=== PATIENT | male | born 1950 | race Caucasian/White ===

== ENCOUNTER 2021-07-12 10:55 | Inpatient (IN) | payer MEDICARE, OTHER ==
[2021-07-12] MEDS ORDERED: Sodium Chloride 0.9% 1,000 ML IV ONE (11:06)
[2021-07-12] MEDS ORDERED: Aspirin 81 MG Tab.Chew PO ONE (11:06)
--- NOTE | 2021-07-12 11:09 | PCM.EKG ---
#1 Interpretation EKG Date: 07/12/21 Time: 10:55 Rhythm: NSR Rate (Beats/Min): 89 ST-T: Depressed (diffusely)
--- NOTE | 2021-07-12 11:18 | EDM.PDOC ---
ED HPI GENERAL MEDICAL PROBLEM - General Chief Complaint: Respiratory Problem Stated Complaint: EMS Time Seen by Provider: 07/12/21 10:59 Source of Information: Reports: Patient History Limitations: Reports: No Limitations - History of Present Illness INITIAL COMMENTS - FREE TEXT/NARRATIVE: HISTORY AND PHYSICAL: History of present illness: Patient is a 70-year-old male, with past medical history for hypertension, type 2 diabetes, prior colon cancer in remission, who presents emergency room today with concern of "not feeling well "which has been ongoing for the past 1-08/06 we eks. Patient states that he has been having "chest congestion" including cough, runny/stuffy nose, and sore throat. Patient states that he began feeling unwell and went to [facility] today and they brought him to the emergency room by ambulance as his oxygen was low. Patient states that he has also been having some chest pain and shortness of breath but states that the chest pain is related to coughing and feeling congested in his chest. Patient states that he has been also having fevers since the onset of his symptoms a week and a half ago. Patient also notes that he has had a decreased appetite. Patient is not vaccinated for Covid. Patient denies headache, neck stiff ness, change in vision, syncope, or near syncope. Denies nausea, vomiting, abdominal pain, diarrhea, constipation, or dysuria. Has not noted any blood in urine or stool. Review of systems: As per history of present illness and below otherwise all systems reviewed and negative. Past medical history: As per history of present illness and as reviewed below otherwise noncontributory. Surgical history: As per history of present illness and as reviewed below otherwise noncontributory. Social history: See social history for further information Family history: As per history of present illness and as reviewed below otherwise noncontributory. Physical exam: General: Patient is alert, oriented, and in no acute distress. Patient laying comfortably on exam table, pale appearing. Febrile 101, hypoxic 80% on RA (report via EMS), placed on 2L NC and 93%, otherwise vitally stable and reviewed by me. HEENT: Atraumatic, normocephalic, pupils equal and reactive bilaterally, negative for conjunctival pallor or scleral icterus, mucous membranes severely dry, throat clear, neck supple, nontender, trachea midline. No drooling or trismus noted. No meningeal signs. No hot potato voice noted. Lungs: Dry cough on exam. Clear to auscultation, breath sounds equal bilaterally, chest nontender. Heart: S1S2, holosystolic murmur best heard at the LUSB, otherwise, regular rate and rhythm Abdomen: Soft, nondistended, nontender. Negative for masses or hepatosplenomegaly. Negative for costovertebral tenderness. Pelvis: Stable nontender. Genitourinary: Deferred. Rectal: Deferred. Skin: Intact, warm, dry. No lesions or rashes noted. Extremities: Atraumatic, negative for cords or calf pain. Neurovascular unre markable. Neuro: Awake, alert, oriented. Cranial nerves II through XII unremarkable. Cerebellum unremarkable. Motor and sensory unremarkable throughout. Exam nonfocal. Medical Decision Making: Patient is a 70-year-old male with a history of type 2 diabetes, hypertension, prior colon cancer in remission, who presents emergency room today with concern of cough, fever, generalized body aches, chest pain, shortness of breath, and feeling unwell for the past 1.5 weeks. Upon arrival to the ED, patient is hypoxic 80% on room air according to EMS report, but is on 1.5 L nasal cannula upon arrival to the ED by EMS and is satting 93%. Patient is also febrile on exam 101, and patient's mucous membranes are severely dry on exam. Patient is also noted to have a dry cough. Patient does have a holosystolic murmur best heard at the left upper sternal border, remainder of physical exam unremarkable. No lower extremity edema. IV access obtained immediately upon arrival to the ED, panel monitor placed and continuous pulse oximeter obtained. Given patient's clinical dehydration, will also provide 1 L normal saline bolus at this time while awaiting cardiac evaluation. See Dr. Luke's dictation for specific EKG interpretation. Otherwise, normal sinus rhythm with a rate of 89. Patient does have some diffuse T wave inversions with some ST depression in leads II, and mild ST elevation in aVR by 1 mm. At this time, this is nonspecific. No evidence of STEMI. Will follow troponin. CBC does show mild anemia with red blood cells at 4.4, and hemoglobin of 12.6. Patient was thrombocytopenic with platelets of 107. Otherwise mild derangements of CBC unremarkable. D-dimer is elevated at 1.7 so will obtain angiography of the chest. CMP does show glucose elevation at 204, total bilirubin elevated in isolation at 1.4. Troponin is negative. Otherwise mild derangements of CMP unremarkable. Patient is Covid 19 positive and influenza negative. chest X-ray unremarkable. Angiography of the chest is negative for acute pulmonary embolism. Thickening of the left ventricle myocardium with evidence of poor infarct at the apex. Correlate clinically. Moderate patchy groundglass opacities throughout the lungs bilaterally compatible with Covid pneumonia. Nodularity of the liver surface suggesting cirrhosis. Mild splenomegaly. Reevaluation of patient, he remains vitally stable and has improvement of his symptoms with therapeutics given today in the emergency room. Patient remains on 2 L nasal cannula and satting about 93% and breathing comfortably. Patient does state he has chest pain only with coughing but outside of this, has not had any new onset chest pain or worsening symptoms. Patient states he would not have come to the emergency room today if the clinic had not sent him as he did not have any change in symptoms today. I did call and speak to the hospitalist on-call, Dr. Concepcion, and thoroughly discussed patient's case. Will admit to inpatient on telemetry to Dr. Concepcion Voices understanding and is agreeable to plan of care. Denies any further questions or concerns at this time. Diagnostics: EKG, CBC, CMP, UA, chest x-ray, troponin, D-dimer, COVID-19/influenza Therapeutics: Normal saline, Decadron, remdesivir, Tylenol Impression: COVID-19 pneumonia with acute hypoxia Acute dehydration Plan: Admit to inpatient on telemetry to Dr. Concepcion Definitive disposition and diagnosis as appropriate pending reevaluation and review of above. chest Pain Score (Numeric/FACES): 3 - Related Data Allergies Allergy/AdvReac Type Severity Reaction Status Date / Time No Known Allergies Allergy Verified 07/12/21 11:14 Home Meds: Home Meds Aspirin [Halfprin] 81 mg PO DAILY 07/12/21 [History] Dexamethasone/Tobramycin [Tobradex Ophth Susp] 1 drop EYELF QID 07/12/21 [History] Donepezil [Aricept] 5 mg PO BEDTIME 07/12/21 [History] Erythromycin Base [Erythromycin 0.5% Ophth Oint] 1 applic EYELF BEDTIME 07/12/21 [History] Sertraline [Zoloft] 100 mg PO DAILY 07/12/21 [History] Simvastatin 20 mg PO DAILY 07/12/21 [History] metFORMIN [Glucophage] 500 mg PO DAILY 07/12/21 [History] ED ROS GENERAL - Review of Systems Review Of Systems: Comprehensive ROS is negative, except as noted in HPI. ED EXAM, GENERAL - Physical Exam Exam: See Below (see dictation) Course - Vital Signs Last Recorded V/S: Last Vital Signs Temp 101.1 F H 07/12/21 12:05 Pulse 99 07/12/21 11:09 Resp 20 07/12/21 11:09 BP 155/62 H 07/12/21 11:09 Pulse Ox 88 L 07/12/21 11:09 - Orders/Labs/Meds Orders: Active Orders 24 hr Category Date Time Status Admission Status [Patient Status] [ADT] Stat ADT 07/12/21 14:24 Active Cardiac Monitoring [RC] . DIRECTED Care 07/12/21 11:06 Active BILIRUBIN DIRECT [CHEM] DAILY Lab 07/12/21 14:36 Received BILIRUBIN DIRECT [CHEM] DAILY Lab 07/13/21 12:30 Ordered BILIRUBIN DIRECT [CHEM] DAILY Lab 07/14/21 12:30 Ordered BILIRUBIN DIRECT [CHEM] DAILY Lab 07/15/21 12:30 Ordered BILIRUBIN DIRECT [CHEM] DAILY Lab 07/16/21 12:30 Ordered COMPREHENSIVE METABOLIC PN,CMP [CHEM] DAILY Lab 07/13/21 12:30 Ordered COMPREHENSIVE METABOLIC PN,CMP [CHEM] DAILY Lab 07/14/21 12:30 Ordered COMPREHENSIVE METABOLIC PN,CMP [CHEM] DAILY Lab 07/15/21 12:30 Ordered COMPREHENSIVE METABOLIC PN,CMP [CHEM] DAILY Lab 07/16/21 12:30 Ordered COMPREHENSIVE METABOLIC PN,CMP [CHEM] Routine Lab 07/12/21 14:36 Received CULTURE BLOOD [BC] Stat Lab 07/12/21 11:00 Received CULTURE BLOOD [BC] Stat Lab 07/12/21 11:10 Received TROPONIN I [CHEM] Stat Lab 07/12/21 14:36 Received UA RFX GIO AND CULT IF INDIC [URIN] Stat Lab 07/12/21 11:06 Ordered Blood Culture x2 Reflex Set [OM.PC] Stat Oth 07/12/21 11:06 Ordered Labs: Laboratory Tests 07/12/21 07/12/21 07/12/21 Range/Units 10:59 11:03 11:03 WBC 7.88 (4.0-11.0) K/uL RBC 4.40 L (4.50-5.90) M/uL Hgb 12.6 L (13.0-17.0) g/dL Hct 38.0 (38.0-50.0) % MCV 86.4 (80.0-98.0) fL MCH 28.6 (27.0-32.0) pg MCHC 33.2 (31.0-37.0) g/dL RDW Std Deviation 42.7 (28.0-62.0) fl RDW Coeff of Aaron 13 (11.0-15.0) % Plt Count 107 L (150-400) K/uL MPV 13.10 H (7.40-12.00) fL Neut % (Auto) 78.9 (48.0-80.0) % Lymph % (Auto) 11.4 L (16.0-40.0) % Sandoval % (Auto) 9.1 (0.0-15.0) % Eos % (Auto) 0.5 (0.0-7.0) % Baso % (Auto) 0.1 (0.0-1.5) % Neut # (Auto) 6.2 H (1.4-5.7) K/uL Lymph # (Auto) 0.9 (0.6-2.4) K/uL Sandoval # (Auto) 0.7 (0.0-0.8) K/uL Eos # (Auto) 0.0 (0.0-0.7) K/uL Baso # (Auto) 0.0 (0.0-0.1) K/uL Nucleated RBC % 0.0 /100WBC Nucleated RBCs # 0 K/uL D-Dimer, Quantitative 1.70 H (0.0-0.50) mg/L FEU Sodium (136-148) mmol/L Potassium (3.5-5.1) mmol/L Chloride (98-107) mmol/L Carbon Dioxide (21.0-32.0) mmol/L BUN (7.0-18.0) mg/dL Creatinine (0.8-1.3) mg/dL Est Cr Clr Drug Dosing mL/min Estimated GFR (MDRD) ml/min Glucose (74-106) mg/dL Lactic Acid (0.4-2.0) mmol/L Calcium (8.5-10.1) mg/dL Total Bilirubin (0.2-1.0) mg/dL AST (15-37) IU/L ALT (14-63) IU/L Alkaline Phosphatase (46-116) U/L Troponin I (0.000-0.056) ng/mL Total Protein (6.4-8.2) g/dL Albumin (3.4-5.0) g/dL Globulin (2.6-4.0) g/dL Albumin/Globulin Ratio (0.9-1.6) Lipase (73-393) U/L Influenza Type A RNA NEGATIVE (NEGATIVE) Influenza Type B RNA NEGATIVE (NEGATIVE) SARS-CoV-2 RNA (DEE) POSITIVE H (NEGATIVE) 07/12/21 07/12/21 Range/Units 11:03 11:03 WBC (4.0-11.0) K/uL RBC (4.50-5.90) M/uL Hgb (13.0-17.0) g/dL Hct (38.0-50.0) % MCV (80.0-98.0) fL MCH (27.0-32.0) pg MCHC (31.0-37.0) g/dL RDW Std Deviation (28.0-62.0) fl RDW Coeff of Aaron (11.0-15.0) % Plt Count (150-400) K/uL MPV (7.40-12.00) fL Neut % (Auto) (48.0-80.0) % Lymph % (Auto) (16.0-40.0) % Sandoval % (Auto) (0.0-15.0) % Eos % (Auto) (0.0-7.0) % Baso % (Auto) (0.0-1.5) % Neut # (Auto) (1.4-5.7) K/uL Lymph # (Auto) (0.6-2.4) K/uL Sandoval # (Auto) (0.0-0.8) K/uL Eos # (Auto) (0.0-0.7) K/uL Baso # (Auto) (0.0-0.1) K/uL Nucleated RBC % /100WBC Nucleated RBCs # K/uL D-Dimer, Quantitative (0.0-0.50) mg/L FEU Sodium 138 (136-148) mmol/L Potassium 4.1 (3.5-5.1) mmol/L Chloride 102 (98-107) mmol/L Carbon Dioxide 25.6 (21.0-32.0) mmol/L BUN 13 (7.0-18.0) mg/dL Creatinine 1.3 (0.8-1.3) mg/dL Est Cr Clr Drug Dosing 55.51 mL/min Estimated GFR (MDRD) 54.4 ml/min Glucose 204 H (74-106) mg/dL Lactic Acid 1.7 (0.4-2.0) mmol/L Calcium 8.4 L (8.5-10.1) mg/dL Total Bilirubin 1.4 H (0.2-1.0) mg/dL AST 24 (15-37) IU/L ALT 18 (14-63) IU/L Alkaline Phosphatase 79 (46-116) U/L Troponin I < 0.050 (0.000-0.056) ng/mL Total Protein 8.1 (6.4-8.2) g/dL Albumin 3.3 L (3.4-5.0) g/dL Globulin 4.8 H (2.6-4.0) g/dL Albumin/Globulin Ratio 0.7 L (0.9-1.6) Lipase 155 (73-393) U/L Influenza Type A RNA (NEGATIVE) Influenza Type B RNA (NEGATIVE) SARS-CoV-2 RNA (DEE) (NEGATIVE) Meds: Medications Discontinued Medications Generic Name Dose Route Start Last Admin Trade Name Freq PRN Reason Stop Dose Admin Acetaminophen 1,000 mg 07/12/21 11:45 07/12/21 12:05 Acetaminophen 500 Mg Tab PO 07/12/21 11:46 1,000 mg ONETIME ONE Administration Aspirin 324 mg 07/12/21 11:06 07/12/21 11:20 Aspirin 81 Mg Tab.Chew PO 07/12/21 11:07 324 mg ONETIME ONE Administration Dexamethasone 10 mg 07/12/21 12:09 07/12/21 12:15 Dexamethasone 10 Mg/Ml Sdv IVPUSH 12/08/21 12:10 10 mg ONETIME ONE Administration Sodium Chloride 1,000 mls @ 999 mls/hr 07/12/21 11:06 07/12/21 11:19 Normal Saline IV 07/12/21 12:06 999 mls/hr BOLUS ONE Administration Remdesivir 200 mg/ Sodium 250 mls @ 250 mls/hr 07/12/21 12:20 07/12/21 13:39 Chloride IV 07/12/21 12:21 250 mls/hr ONETIME ONE Administration Iopamidol 100 ml 07/12/21 13:15 07/12/21 13:15 Iopamidol 755 Mg/Ml 500 Ml Multipack Bottle IVPUSH 07/12/21 13:16 100 ml ONETIME STA Administration Departure - Departure Time of Disposition: 12:39 Disposition: Admitted As Inpatient 65 Clinical Impression: Pneumonia due to COVID-19 virus, Hypoxia, Dehydration - Discharge Information Forms: ED Department Discharge Sepsis Event Note (ED) - Focused Exam Vital Signs: Vital Signs Temp Temp Pulse Resp BP Pulse Ox 07/12/21 12:05 101.1 F H 07/12/21 11:09 101.1 F H 99 20 155/62 H 88 L - My Orders Last 24 Hours: My Active Orders 07/12/21 11:00 CULTURE BLOOD [BC] Stat 07/12/21 11:06 Cardiac Monitoring [RC] . DIRECTED UA RFX GIO AND CULT IF INDIC [URIN] Stat Blood Culture x2 Reflex Set [OM.PC] Stat 07/12/21 11:10 CULTURE BLOOD [BC] Stat 07/12/21 14:24 Admission Status [Patient Status] [ADT] Stat 07/12/21 14:36 BILIRUBIN DIRECT [CHEM] DAILY COMPREHENSIVE METABOLIC PN,CMP [CHEM] Routine TROPONIN I [CHEM] Stat 07/13/21 12:30 BILIRUBIN DIRECT [CHEM] DAILY COMPREHENSIVE METABOLIC PN,CMP [CHEM] DAILY 07/14/21 12:30 BILIRUBIN DIRECT [CHEM] DAILY COMPREHENSIVE METABOLIC PN,CMP [CHEM] DAILY 07/15/21 12:30 BILIRUBIN DIRECT [CHEM] DAILY COMPREHENSIVE METABOLIC PN,CMP [CHEM] DAILY 07/16/21 12:30 BILIRUBIN DIRECT [CHEM] DAILY COMPREHENSIVE METABOLIC PN,CMP [CHEM] DAILY - Assessment/Plan Last 24 Hours: My Active Orders 07/12/21 11:00 CULTURE BLOOD [BC] Stat 07/12/21 11:06 Cardiac Monitoring [RC] . DIRECTED UA RFX GIO AND CULT IF INDIC [URIN] Stat Blood Culture x2 Reflex Set [OM.PC] Stat 07/12/21 11:10 CULTURE BLOOD [BC] Stat 07/12/21 14:24 Admission Status [Patient Status] [ADT] Stat 07/12/21 14:36 BILIRUBIN DIRECT [CHEM] DAILY COMPREHENSIVE METABOLIC PN,CMP [CHEM] Routine TROPONIN I [CHEM] Stat 07/13/21 12:30 BILIRUBIN DIRECT [CHEM] DAILY COMPREHENSIVE METABOLIC PN,CMP [CHEM] DAILY 07/14/21 12:30 BILIRUBIN DIRECT [CHEM] DAILY COMPREHENSIVE METABOLIC PN,CMP [CHEM] DAILY 07/15/21 12:30 BILIRUBIN DIRECT [CHEM] DAILY COMPREHENSIVE METABOLIC PN,CMP [CHEM] DAILY 07/16/21 12:30 BILIRUBIN DIRECT [CHEM] DAILY COMPREHENSIVE METABOLIC PN,CMP [CHEM] DAILY
[2021-07-12 11:43] LABS: BLOOD UREA NITROGEN,BUN 13 mg/dL (7.0-18.0); CARBON DIOXIDE,CO2 25.6 mmol/L (21.0-32.0); CHLORIDE,CL 102 mmol/L (98-107); GLUCOSE RANDOM 204 mg/dL (74-106); LIPASE 155 U/L (73-393); POTASSIUM,K 4.1 mmol/L (3.5-5.1); SODIUM,NA 138 mmol/L (136-148)
[2021-07-12] MEDS ORDERED: Acetaminophen 500 MG Tab PO ONE (11:45)
[2021-07-12 12:02] LABS: CORONAVIRUS COVID-19 NAA POSITIVE (NEGATIVE); INFLUENZA A NAA NEGATIVE (NEGATIVE); INFLUENZA B NAA NEGATIVE (NEGATIVE)
--- NOTE | 2021-07-12 12:05 | CR ---
Indication: Fever, hypoxia Technique: Chest 1 view Comparison: None Findings/Impression: Cardiovascular and mediastinum: Heart size and vasculature are normal in caliber and appearance. Mediastinum is within normal limits. Lungs and pleural space: Lungs are clear. No sign of infiltrate or mass. No sign of pleural effusion. No pneumothorax. Bones and soft tissues: Old-appearing deformity of the proximal right humerus. Partial resection of the right posterior 3rd rib. Dictated by Rubi Elizondo MD @ 07/12/2021 12:04:30 PM (Electronically Signed)
[2021-07-12] MEDS ORDERED: Dexamethasone 10 MG/ML SDV IVPUSH ONE (12:09)
[2021-07-12] MEDS ORDERED: REMDESIVIR 200 MG in Sodium Chloride 0.9% 250 ML IV ONE (12:20)
[2021-07-12] MEDS ORDERED: Iopamidol 755 MG/ML 500 ML Multipack Bottle IVPUSH STA (13:15)
--- NOTE | 2021-07-12 14:02 | CT ---
INDICATION: Shortness of breath, hypoxia, COVID, elevated D-dimer. COMPARISON: Chest radiograph 07/12/2021. TECHNIQUE: CT of the chest with 100 cc of Isovue 370 IV contrast. Coronal and sagittal reconstructions. 3D post processing was performed. FINDINGS: Normal heart size. 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 Normal caliber thoracic aorta and central pulmonary arteries. Coronary artery and aortic vascular calcifications. Aortic valve calcifications. Negative for acute pulmonary embolism. No pericardial effusion. Multiple mildly prominent mediastinal and bilateral hilar lymph nodes are likely reactive. There are moderate patchy ground-glass opacities throughout the lungs bilaterally which have a peripheral and basilar predominance. Findings are compatible with COVID pneumonia. No pleural effusion or pneumothorax. No pulmonary nodules identified. No central endobronchial lesion. Nodularity of the liver surface suggesting cirrhosis. The spleen is enlarged measuring approximately 13.5 cm in length. Nonspecific calcified nodule in the right anterior abdomen. The visualized upper abdomen is otherwise unremarkable. Degenerative changes of the spine and right shoulder. Chronic appearing mild depression of the T4 vertebral body. IMPRESSION: 1. Negative for acute pulmonary embolism. 2. 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 Correlate clinically. 3. Moderate patchy ground-glass opacities throughout the lungs bilaterally compatible with COVID pneumonia. 4. Nodularity of the liver surface suggesting cirrhosis. Mild splenomegaly. Please note that all CT scans at this facility use dose modulation, iterative reconstruction, and/or weight-based dosing when appropriate to reduce radiation dose to as low as reasonably achievable. Dictated by Alondra Falcon MD @ 07/12/2021 2:00:33 PM (Electronically Signed)
[2021-07-12 15:18] LABS: BLOOD UREA NITROGEN,BUN 13 mg/dL (7.0-18.0); CARBON DIOXIDE,CO2 23.7 mmol/L (21.0-32.0); CHLORIDE,CL 104 mmol/L (98-107); GLUCOSE RANDOM 200 mg/dL (74-106); POTASSIUM,K 3.9 mmol/L (3.5-5.1); SODIUM,NA 138 mmol/L (136-148)
[2021-07-12] MEDS ORDERED: 50% Dextrose in Water 50 ML Syringe IVPUSH PRN (16:05)
[2021-07-12] MEDS ORDERED: Glucagon,Human Recombinant 1 MG Vial IM PRN (16:05)
[2021-07-12] MEDS ORDERED: Enoxaparin 40 MG/0.4 ML Syringe SUBCUT SCH (16:15)
--- NOTE | 2021-07-12 16:16 | PCM.HP.2 ---
H&P History of Present Illness - General Date of Service: 07/12/21 Admit Problem/Dx: Admission Diagnosis/Problem Admission Diagnosis/Problem Hypoxia - History of Present Illness Initial Comments - Free Text/Narative: 70 yo male with pmh of DM who presents with one week of cough, nasal congestion, headache and shortness of breath. PAtient in the ED was found to be hypoxic and requiring 2 L to keep sats above 90%. CT chest reported patchy bilateral infiltrates and thickened left myocardium with eveidenc of prior infarct at the left apex. Patient denies any history of heart disease and has no chest pain. chest Pain Score (Numeric/FACES): 3 - Related Data Allergies/Adverse Reactions: Allergies Allergy/AdvReac Type Severity Reaction Status Date / Time No Known Allergies Allergy Verified 07/12/21 16:40 Home Medications: Home Meds Aspirin [Halfprin] 81 mg PO DAILY 07/12/21 [History] Donepezil [Aricept] 5 mg PO BEDTIME 07/12/21 [History] Sertraline [Zoloft] 100 mg PO DAILY 07/12/21 [History] Simvastatin 20 mg PO DAILY 07/12/21 [History] metFORMIN [Glucophage] 500 mg PO DAILY 07/12/21 [History] Past Medical History HEENT History: Reports: None Cardiovascular History: Reports: High Cholesterol, Hypertension Respiratory History: Reports: None Gastrointestinal History: Reports: None Genitourinary History: Reports: None Musculoskeletal History: Reports: None Neurological History: Reports: None Psychiatric History: Reports: None Endocrine/Metabolic History: Reports: Diabetes, Type II Hematologic History: Reports: None Immunologic History: Reports: None Oncologic (Cancer) History: Reports: Colon Dermatologic History: Reports: None - Infectious Disease History Infectious Disease History: Reports: None - Past Surgical History Head Surgeries/Procedures: Reports: None HEENT Surgical History: Reports: None Cardiovascular Surgical History: Reports: None Respiratory Surgical History: Reports: None GI Surgical History: Reports: Colonoscopy Male Surgical History: Reports: None Endocrine Surgical History: Reports: None Neurological Surgical History: Reports: None Musculoskeletal Surgical History: Reports: None Oncologic Surgical History: Reports: None Dermatological Surgical History: Reports: None Social & Family History - Family History Family Medical History: No Pertinent Family History - Caffeine Use Caffeine Use: Reports: None - Recreational Drug Use Recreational Drug Use: No H&P Review of Systems - Review of Systems: Review Of Systems: Comprehensive ROS is negative, except as noted in HPI. Exam - Exam Exam: See Below - Vital Signs Vital Signs: Last Vital Signs Temp 38.4 C H 07/12/21 12:05 Pulse 66 07/12/21 15:36 Resp 16 07/12/21 15:36 BP 155/62 H 07/12/21 15:36 Pulse Ox 93 L 07/12/21 15:36 Weight: 81.647 kg - Exam General: Alert, Oriented HEENT: Conjunctiva Clear Lungs: Clear to Auscultation, Normal Respiratory Effort Cardiovascular: Regular Rate, Regular Rhythm GI/Abdominal Exam: Normal Bowel Sounds, Soft, Non-Tender Extremities: Non-Tender, No Pedal Edema Skin: Warm, Dry, Intact Neurological: No: Focal Deficit - Patient Data Lab Results Last 24 hrs: Laboratory Results - last 24 hr 07/12/21 07/12/21 07/12/21 Range/Units 10:59 11:03 11:03 WBC 7.88 (4.0-11.0) K/uL RBC 4.40 L (4.50-5.90) M/uL Hgb 12.6 L (13.0-17.0) g/dL Hct 38.0 (38.0-50.0) % MCV 86.4 (80.0-98.0) fL MCH 28.6 (27.0-32.0) pg MCHC 33.2 (31.0-37.0) g/dL RDW Std Deviation 42.7 (28.0-62.0) fl RDW Coeff of Aaron 13 (11.0-15.0) % Plt Count 107 L (150-400) K/uL MPV 13.10 H (7.40-12.00) fL Neut % (Auto) 78.9 (48.0-80.0) % Lymph % (Auto) 11.4 L (16.0-40.0) % [place] % (Auto) 9.1 (0.0-15.0) % Eos % (Auto) 0.5 (0.0-7.0) % Baso % (Auto) 0.1 (0.0-1.5) % Neut # (Auto) 6.2 H (1.4-5.7) K/uL Lymph # (Auto) 0.9 (0.6-2.4) K/uL [place] # (Auto) 0.7 (0.0-0.8) K/uL Eos # (Auto) 0.0 (0.0-0.7) K/uL Baso # (Auto) 0.0 (0.0-0.1) K/uL Nucleated RBC % 0.0 /100WBC Nucleated RBCs # 0 K/uL D-Dimer, Quantitative 1.70 H (0.0-0.50) mg/L FEU Sodium (136-148) mmol/L Potassium (3.5-5.1) mmol/L Chloride (98-107) mmol/L Carbon Dioxide (21.0-32.0) mmol/L BUN (7.0-18.0) mg/dL Creatinine (0.8-1.3) mg/dL Est Cr Clr Drug Dosing mL/min Estimated GFR (MDRD) ml/min Glucose (74-106) mg/dL Lactic Acid (0.4-2.0) mmol/L Calcium (8.5-10.1) mg/dL Total Bilirubin (0.2-1.0) mg/dL Direct Bilirubin (0.0-0.5) mg/dL AST (15-37) IU/L ALT (14-63) IU/L Alkaline Phosphatase (46-116) U/L Troponin I (0.000-0.056) ng/mL Total Protein (6.4-8.2) g/dL Albumin (3.4-5.0) g/dL Globulin (2.6-4.0) g/dL Albumin/Globulin Ratio (0.9-1.6) Lipase (73-393) U/L Influenza Type A RNA NEGATIVE (NEGATIVE) Influenza Type B RNA NEGATIVE (NEGATIVE) SARS-CoV-2 RNA (DEE) POSITIVE H (NEGATIVE) 07/12/21 07/12/21 07/12/21 Range/Units 11:03 11:03 14:36 WBC (4.0-11.0) K/uL RBC (4.50-5.90) M/uL Hgb (13.0-17.0) g/dL Hct (38.0-50.0) % MCV (80.0-98.0) fL MCH (27.0-32.0) pg MCHC (31.0-37.0) g/dL RDW Std Deviation (28.0-62.0) fl RDW Coeff of Aaron (11.0-15.0) % Plt Count (150-400) K/uL MPV (7.40-12.00) fL Neut % (Auto) (48.0-80.0) % Lymph % (Auto) (16.0-40.0) % [place] % (Auto) (0.0-15.0) % Eos % (Auto) (0.0-7.0) % Baso % (Auto) (0.0-1.5) % Neut # (Auto) (1.4-5.7) K/uL Lymph # (Auto) (0.6-2.4) K/uL [place] # (Auto) (0.0-0.8) K/uL Eos # (Auto) (0.0-0.7) K/uL Baso # (Auto) (0.0-0.1) K/uL Nucleated RBC % /100WBC Nucleated RBCs # K/uL D-Dimer, Quantitative (0.0-0.50) mg/L FEU Sodium 138 138 (136-148) mmol/L Potassium 4.1 3.9 (3.5-5.1) mmol/L Chloride 102 104 (98-107) mmol/L Carbon Dioxide 25.6 23.7 (21.0-32.0) mmol/L BUN 13 13 (7.0-18.0) mg/dL Creatinine 1.3 1.1 (0.8-1.3) mg/dL Est Cr Clr Drug Dosing 55.51 65.60 mL/min Estimated GFR (MDRD) 54.4 > 60.0 ml/min Glucose 204 H 200 H (74-106) mg/dL Lactic Acid 1.7 (0.4-2.0) mmol/L Calcium 8.4 L 8.0 L (8.5-10.1) mg/dL Total Bilirubin 1.4 H 1.1 H (0.2-1.0) mg/dL Direct Bilirubin 0.20 (0.0-0.5) mg/dL AST 24 22 (15-37) IU/L ALT 18 17 (14-63) IU/L Alkaline Phosphatase 79 70 (46-116) U/L Troponin I < 0.050 (0.000-0.056) ng/mL Total Protein 8.1 7.1 (6.4-8.2) g/dL Albumin 3.3 L 2.9 L (3.4-5.0) g/dL Globulin 4.8 H 4.2 H (2.6-4.0) g/dL Albumin/Globulin Ratio 0.7 L 0.7 L (0.9-1.6) Lipase 155 (73-393) U/L Influenza Type A RNA (NEGATIVE) Influenza Type B RNA (NEGATIVE) SARS-CoV-2 RNA (DEE) (NEGATIVE) 07/12/21 Range/Units 14:36 WBC (4.0-11.0) K/uL RBC (4.50-5.90) M/uL Hgb (13.0-17.0) g/dL Hct (38.0-50.0) % MCV (80.0-98.0) fL MCH (27.0-32.0) pg MCHC (31.0-37.0) g/dL RDW Std Deviation (28.0-62.0) fl RDW Coeff of Aaron (11.0-15.0) % Plt Count (150-400) K/uL MPV (7.40-12.00) fL Neut % (Auto) (48.0-80.0) % Lymph % (Auto) (16.0-40.0) % [place] % (Auto) (0.0-15.0) % Eos % (Auto) (0.0-7.0) % Baso % (Auto) (0.0-1.5) % Neut # (Auto) (1.4-5.7) K/uL Lymph # (Auto) (0.6-2.4) K/uL [place] # (Auto) (0.0-0.8) K/uL Eos # (Auto) (0.0-0.7) K/uL Baso # (Auto) (0.0-0.1) K/uL Nucleated RBC % /100WBC Nucleated RBCs # K/uL D-Dimer, Quantitative (0.0-0.50) mg/L FEU Sodium (136-148) mmol/L Potassium (3.5-5.1) mmol/L Chloride (98-107) mmol/L Carbon Dioxide (21.0-32.0) mmol/L BUN (7.0-18.0) mg/dL Creatinine (0.8-1.3) mg/dL Est Cr Clr Drug Dosing mL/min Estimated GFR (MDRD) ml/min Glucose (74-106) mg/dL Lactic Acid (0.4-2.0) mmol/L Calcium (8.5-10.1) mg/dL Total Bilirubin (0.2-1.0) mg/dL Direct Bilirubin (0.0-0.5) mg/dL AST (15-37) IU/L ALT (14-63) IU/L Alkaline Phosphatase (46-116) U/L Troponin I 0.053 (0.000-0.056) ng/mL Total Protein (6.4-8.2) g/dL Albumin (3.4-5.0) g/dL Globulin (2.6-4.0) g/dL Albumin/Globulin Ratio (0.9-1.6) Lipase (73-393) U/L Influenza Type A RNA (NEGATIVE) Influenza Type B RNA (NEGATIVE) SARS-CoV-2 RNA (DEE) (NEGATIVE) Result Diagrams: 07/13/21 05:37 07/13/21 05:37 Sepsis Event Note - Evaluation Sepsis Screening Result: No Definite Risk - Focused Exam Vital Signs: Vital Signs Temp Temp Pulse Resp BP Pulse Ox 07/12/21 15:36 66 16 155/62 H 93 L 07/12/21 12:05 38.4 C H 07/12/21 11:09 38.4 C H 99 20 155/62 H 88 L - Problem List (1) Pneumonia due to COVID-19 virus SNOMED Code(s): 662003868359151846 ICD Code: U07.1 - COVID-19; J12.82 - PNEUMONIA DUE TO CORONAVIRUS DISEASE 2019 Status: Acute Current Visit: Yes (2) Hypoxia SNOMED Code(s): 481804217 ICD Code: R09.02 - HYPOXEMIA Status: Acute Current Visit: Yes (3) Dehydration SNOMED Code(s): 15501069 ICD Code: E86.0 - DEHYDRATION Status: Acute Current Visit: Yes Problem List Initiated/Reviewed/Updated: Yes Orders Last 24hrs: Active Orders 24 hr Category Date Time Status Admission Status [Patient Status] [ADT] Stat ADT 07/12/21 14:24 Active Blood Glucose Check, Bedside [RC] TIDAC Care 07/12/21 16:05 Ordered Cardiac Monitoring [RC] . DIRECTED Care 07/12/21 11:06 Active Oxygen Therapy [RC] PRN Care 07/12/21 16:09 Ordered Telemetry Monitoring [Cardiac Monitoring] [RC] . Care 07/12/21 15:24 Active DIRECTED VTE/DVT Education [RC] PER UNIT ROUTINE Care 07/12/21 16:09 Ordered VTE/DVT Education [RC] PER UNIT ROUTINE Care 07/12/21 16:09 Ordered Vital Signs [RC] Q4H Care 07/12/21 16:09 Ordered [place] [employer] Diet [DIET] Diet 07/12/21 Breakfast Ordered CBC WITH AUTO DIFF [HEME] AM Lab 07/13/21 05:11 Ordered CBC WITH AUTO DIFF [HEME] AM Lab 07/14/21 05:11 Ordered CBC WITH AUTO DIFF [HEME] AM Lab 07/15/21 05:11 Ordered CBC WITH AUTO DIFF [HEME] AM Lab 07/16/21 05:11 Ordered CBC WITH AUTO DIFF [HEME] AM Lab 07/17/21 05:11 Ordered COMPREHENSIVE METABOLIC PN,CMP [CHEM] AM Lab 07/13/21 05:11 Ordered COMPREHENSIVE METABOLIC PN,CMP [CHEM] AM Lab 07/14/21 05:11 Ordered COMPREHENSIVE METABOLIC PN,CMP [CHEM] AM Lab 07/15/21 05:11 Ordered COMPREHENSIVE METABOLIC PN,CMP [CHEM] AM Lab 07/16/21 05:11 Ordered COMPREHENSIVE METABOLIC PN,CMP [CHEM] AM Lab 07/17/21 05:11 Ordered CULTURE BLOOD [BC] Stat Lab 07/12/21 11:00 Received CULTURE BLOOD [BC] Stat Lab 07/12/21 11:10 Received UA RFX GIO AND CULT IF INDIC [URIN] Stat Lab 07/12/21 11:06 Ordered Dextrose 50% in Water Med 07/12/21 16:05 Ordered 50 ml IVPUSH ASDIRECTED PRN Donepezil [Aricept] Med 07/12/21 21:00 Ordered 5 mg PO BEDTIME Enoxaparin [Lovenox] Med 07/12/21 16:15 Ordered 40 mg SUBCUT Q24H Glucagon,Human Recombinant [GlucaGen] Med 07/12/21 16:05 Ordered 1 mg IM ASDIRECTED PRN Insulin Aspart [NovoLOG] Med 07/12/21 17:00 Ordered See Protocol SUBCUT TIDAC Remdesivir 100 mg Med 07/13/21 12:00 Ordered Sodium Chloride 0.9% [Normal Saline AdvBag] 100 ml IV Q24H Sertraline [Zoloft] Med 07/13/21 09:00 Ordered 100 mg PO DAILY Simvastatin [Zocor] Med 07/13/21 09:00 Ordered 20 mg PO DAILY dexAMETHasone Med 07/13/21 12:00 Ordered 6 mg PO Q24H Blood Culture x2 Reflex Set [OM.PC] Stat Oth 07/12/21 11:06 Ordered Resuscitation Status Routine Resus Stat 07/12/21 16:09 Ordered Medication Orders Dextrose/Water (50% Dextrose In Water 50 Ml Syringe) 50 ml IVPUSH ASDIRECTED PRN PRN Reason: Hypoglycemia Donepezil HCl (Donepezil 5 Mg Tab) 5 mg PO BEDTIME RAY Enoxaparin Sodium (Enoxaparin 40 Mg/0.4 Ml Syringe) 40 mg SUBCUT Q24H RAY Glucagon (Glucagon,Human Recombinant 1 Mg Vial) 1 mg IM ASDIRECTED PRN PRN Reason: Hypoglycemia Insulin Aspart (Insulin Aspart 100 Units/Ml 3 Ml Pen) 0 unit SUBCUT TIDAC RAY; Protocol Sertraline HCl (Sertraline 100 Mg Tab) 100 mg PO DAILY RAY Simvastatin (Simvastatin 20 Mg Tab) 20 mg PO DAILY RAY Assessment/Plan Comment:: 70 yo male admitted for COVID-19 with Hypoxia Hypoxia: on 2 L NC COVID: treating with dexamethasone and remdesivir Lovenox for DVT prophylaxis
[2021-07-12] MEDS: Insulin Aspart 100 Units/ML 3 ML Pen SUBCUT SCH (17:05)
[2021-07-12] MEDS ORDERED: Donepezil 5 MG Tab PO SCH (21:00)
[2021-07-13 06:53] LABS: BLOOD UREA NITROGEN,BUN 22 mg/dL (7.0-18.0); CARBON DIOXIDE,CO2 21.4 mmol/L (21.0-32.0); CHLORIDE,CL 106 mmol/L (98-107); GLUCOSE RANDOM 301 mg/dL (74-106); SODIUM,NA 139 mmol/L (136-148)
[2021-07-13] MEDS: Insulin Aspart 100 Units/ML 3 ML Pen SUBCUT SCH ×2 (07:53→12:03)
[2021-07-13] MEDS ORDERED: Sertraline 100 MG Tab PO SCH (09:00)
[2021-07-13] MEDS ORDERED: Simvastatin 20 MG Tab PO SCH ×2 (09:00→21:00)
[2021-07-13] MEDS ORDERED: Dexamethasone 4 MG Tab PO SCH (12:00)
[2021-07-13] MEDS ORDERED: REMDESIVIR 100 MG in Sodium Chloride 0.9% 100 ML IV SCH (12:00)
--- NOTE | 2021-07-13 12:08 | PCM.DCSUM1 ---
Discharge Summary - Discharge Data Discharge Date: 07/13/21 Discharge Disposition: Home, Self-Care 01 Condition: Stable - Referral to Home Health Primary Care Physician: PCP None - Discharge Diagnosis/Problem(s) (1) Pneumonia due to COVID-19 virus SNOMED Code(s): 030133459549625457 ICD Code: U07.1 - COVID-19; J12.82 - PNEUMONIA DUE TO CORONAVIRUS DISEASE 2018 Status: Acute Current Visit: Yes (2) Hypoxia SNOMED Code(s): 376582150 ICD Code: R09.02 - HYPOXEMIA Status: Acute Current Visit: Yes (3) Dehydration SNOMED Code(s): 87686155 ICD Code: E86.0 - DEHYDRATION Status: Acute Current Visit: Yes - Patient Summary/Data Hospital Course: 70 yo male with pmh of DM who presents with one week of cough, nasal congestion, headache and shortness of breath. Patient in the ED was found to be hypoxic and requiring 2 L to keep sats above 90%. He is COVID positive. CT chest reported patchy bilateral infiltrates and thickened left myocardium with evidence of prior infarct at the left apex. Patient denies any history of heart disease and has no chest pain. He was admitted for COVID with hypoxia. He was treated with dexamethasone and remdesivir. This morning patient is feeling much better and is satting 90% on room air. He does desat to 86 with walking this morning. Patient is requesting discharge. He was discharged home with home oxygen and is to follow up with his primary care provider. - Patient Instructions Diet: Diabetic Diet Activity: As Tolerated - Discharge Plan Home Medications: Home Meds Aspirin [Halfprin] 81 mg PO DAILY 07/12/21 [History] Donepezil [Aricept] 5 mg PO BEDTIME 07/12/21 [History] Sertraline [Zoloft] 100 mg PO DAILY 07/12/21 [History] Simvastatin 20 mg PO DAILY 07/12/21 [History] metFORMIN [Glucophage] 500 mg PO DAILY 07/12/21 [History] Oxygen Flow Rate (L/min): 2 Patient Handouts: Hypoxia, COVID-19 Frequently Asked Questions, COVID-19 Vaccine Information, COVID-19: How to Protect Yourself and Others - CDC, COVID- 19: Quarantine vs. Isolation - CDC (07/21/2020), Dehydration, Elderly, [id number] Referrals: Herb Santana MD [Ordering Only Provider] - 08/01/21 12:30 pm - Discharge Summary/Plan Comment DC Time >30 min.: No Total # of Minutes for Discharge Time: 15 - Patient Data Vitals - Most Recent: Last Vital Signs Temp 35.7 C L 07/13/21 08:03 Pulse 67 07/13/21 08:03 Resp 18 07/13/21 08:03 BP 116/56 L 07/13/21 08:03 Pulse Ox 90 L 07/13/21 08:03 Weight - Most Recent: 85.321 kg I&O - Last 24 hours: Intake & Output 07/12/21 07/13/21 07/13/21 22:59 06:59 14:59 Intake Total 790 Balance 790 Lab Results - Last 24 hrs: Laboratory Results - last 24 hr 07/12/21 07/12/21 07/12/21 Range/Units 10:59 14:36 14:36 WBC (4.0-11.0) K/uL RBC (4.50-5.90) M/uL Hgb (13.0-17.0) g/dL Hct (38.0-50.0) % MCV (80.0-98.0) fL MCH (27.0-32.0) pg MCHC (31.0-37.0) g/dL RDW Std Deviation (28.0-62.0) fl RDW Coeff of Aaron (11.0-15.0) % Plt Count (150-400) K/uL MPV (7.40-12.00) fL Neut % (Auto) (48.0-80.0) % Lymph % (Auto) (16.0-40.0) % [place] % (Auto) (0.0-15.0) % Eos % (Auto) (0.0-7.0) % Baso % (Auto) (0.0-1.5) % Neut # (Auto) (1.4-5.7) K/uL Lymph # (Auto) (0.6-2.4) K/uL [place] # (Auto) (0.0-0.8) K/uL Eos # (Auto) (0.0-0.7) K/uL Baso # (Auto) (0.0-0.1) K/uL Nucleated RBC % /100WBC Nucleated RBCs # K/uL Sodium 138 (136-148) mmol/L Potassium 3.9 (3.5-5.1) mmol/L Chloride 104 (98-107) mmol/L Carbon Dioxide 23.7 (21.0-32.0) mmol/L BUN 13 (7.0-18.0) mg/dL Creatinine 1.1 (0.8-1.3) mg/dL Est Cr Clr Drug Dosing 65.60 mL/min Estimated GFR (MDRD) > 60.0 ml/min Glucose 200 H (74-106) mg/dL POC Glucose (70-99) mg/dL Calcium 8.0 L (8.5-10.1) mg/dL Total Bilirubin 1.1 H (0.2-1.0) mg/dL Direct Bilirubin 0.20 (0.0-0.5) mg/dL AST 22 (15-37) IU/L ALT 17 (14-63) IU/L Alkaline Phosphatase 70 (46-116) U/L Troponin I 0.053 (0.000-0.056) ng/mL Total Protein 7.1 (6.4-8.2) g/dL Albumin 2.9 L (3.4-5.0) g/dL Globulin 4.2 H (2.6-4.0) g/dL Albumin/Globulin Ratio 0.7 L (0.9-1.6) Urine Color Urine Appearance Urine pH (5.0-8.0) Ur Specific [place] (1.001-1.035) Urine Protein (NEGATIVE) mg/dL Urine Glucose (UA) (NEGATIVE) mg/dL Urine Ketones (NEGATIVE) mg/dL Urine Occult Blood (NEGATIVE) Urine Nitrite (NEGATIVE) Urine Bilirubin (NEGATIVE) Urine Urobilinogen (<2.0) EU/dL Ur Leukocyte Esterase (NEGATIVE) SARS-CoV-2 RNA (DEE) POSITIVE H (NEGATIVE) 07/12/21 07/12/21 07/13/21 Range/Units 16:04 17:02 05:37 WBC 5.63 (4.0-11.0) K/uL RBC 4.02 L (4.50-5.90) M/uL Hgb 11.2 L (13.0-17.0) g/dL Hct 34.1 L (38.0-50.0) % MCV 84.8 (80.0-98.0) fL MCH 27.9 (27.0-32.0) pg MCHC 32.8 (31.0-37.0) g/dL RDW Std Deviation 40.4 (28.0-62.0) fl RDW Coeff of Aaron 13 (11.0-15.0) % Plt Count 97 L (150-400) K/uL MPV 13.10 H (7.40-12.00) fL Neut % (Auto) 78.6 (48.0-80.0) % Lymph % (Auto) 13.9 L (16.0-40.0) % [place] % (Auto) 7.3 (0.0-15.0) % Eos % (Auto) 0.0 (0.0-7.0) % Baso % (Auto) 0.2 (0.0-1.5) % Neut # (Auto) 4.4 (1.4-5.7) K/uL Lymph # (Auto) 0.8 (0.6-2.4) K/uL [place] # (Auto) 0.4 (0.0-0.8) K/uL Eos # (Auto) 0.0 (0.0-0.7) K/uL Baso # (Auto) 0.0 (0.0-0.1) K/uL Nucleated RBC % 0.0 /100WBC Nucleated RBCs # 0 K/uL Sodium (136-148) mmol/L Potassium (3.5-5.1) mmol/L Chloride (98-107) mmol/L Carbon Dioxide (21.0-32.0) mmol/L BUN (7.0-18.0) mg/dL Creatinine (0.8-1.3) mg/dL Est Cr Clr Drug Dosing mL/min Estimated GFR (MDRD) ml/min Glucose (74-106) mg/dL POC Glucose 275 H (70-99) mg/dL Calcium (8.5-10.1) mg/dL Total Bilirubin (0.2-1.0) mg/dL Direct Bilirubin (0.0-0.5) mg/dL AST (15-37) IU/L ALT (14-63) IU/L Alkaline Phosphatase (46-116) U/L Troponin I (0.000-0.056) ng/mL Total Protein (6.4-8.2) g/dL Albumin (3.4-5.0) g/dL Globulin (2.6-4.0) g/dL Albumin/Globulin Ratio (0.9-1.6) Urine Color YELLOW Urine Appearance CLEAR Urine pH 6.0 (5.0-8.0) Ur Specific [place] <= 1.005 (1.001-1.035) Urine Protein NEGATIVE (NEGATIVE) mg/dL Urine Glucose (UA) NEGATIVE (NEGATIVE) mg/dL Urine Ketones NEGATIVE (NEGATIVE) mg/dL Urine Occult Blood NEGATIVE (NEGATIVE) Urine Nitrite NEGATIVE (NEGATIVE) Urine Bilirubin NEGATIVE (NEGATIVE) Urine Urobilinogen 0.2 (<2.0) EU/dL Ur Leukocyte Esterase NEGATIVE (NEGATIVE) SARS-CoV-2 RNA (DEE) (NEGATIVE) 07/13/21 07/13/21 Range/Units 05:37 06:28 WBC (4.0-11.0) K/uL RBC (4.50-5.90) M/uL Hgb (13.0-17.0) g/dL Hct (38.0-50.0) % MCV (80.0-98.0) fL MCH (27.0-32.0) pg MCHC (31.0-37.0) g/dL RDW Std Deviation (28.0-62.0) fl RDW Coeff of Aaron (11.0-15.0) % Plt Count (150-400) K/uL MPV (7.40-12.00) fL Neut % (Auto) (48.0-80.0) % Lymph % (Auto) (16.0-40.0) % [place] % (Auto) (0.0-15.0) % Eos % (Auto) (0.0-7.0) % Baso % (Auto) (0.0-1.5) % Neut # (Auto) (1.4-5.7) K/uL Lymph # (Auto) (0.6-2.4) K/uL [place] # (Auto) (0.0-0.8) K/uL Eos # (Auto) (0.0-0.7) K/uL Baso # (Auto) (0.0-0.1) K/uL Nucleated RBC % /100WBC Nucleated RBCs # K/uL Sodium 139 (136-148) mmol/L Potassium 4.0 (3.5-5.1) mmol/L Chloride 106 (98-107) mmol/L Carbon Dioxide 21.4 (21.0-32.0) mmol/L BUN 22 H (7.0-18.0) mg/dL Creatinine 1.1 (0.8-1.3) mg/dL Est Cr Clr Drug Dosing 65.60 mL/min Estimated GFR (MDRD) > 60.0 ml/min Glucose 301 H (74-106) mg/dL POC Glucose 290 H (70-99) mg/dL Calcium 8.1 L (8.5-10.1) mg/dL Total Bilirubin 0.7 (0.2-1.0) mg/dL Direct Bilirubin (0.0-0.5) mg/dL AST 24 (15-37) IU/L ALT 18 (14-63) IU/L Alkaline Phosphatase 73 (46-116) U/L Troponin I (0.000-0.056) ng/mL Total Protein 7.3 (6.4-8.2) g/dL Albumin 2.7 L (3.4-5.0) g/dL Globulin 4.6 H (2.6-4.0) g/dL Albumin/Globulin Ratio 0.6 L (0.9-1.6) Urine Color Urine Appearance Urine pH (5.0-8.0) Ur Specific [place] (1.001-1.035) Urine Protein (NEGATIVE) mg/dL Urine Glucose (UA) (NEGATIVE) mg/dL Urine Ketones (NEGATIVE) mg/dL Urine Occult Blood (NEGATIVE) Urine Nitrite (NEGATIVE) Urine Bilirubin (NEGATIVE) Urine Urobilinogen (<2.0) EU/dL Ur Leukocyte Esterase (NEGATIVE) SARS-CoV-2 RNA (DEE) (NEGATIVE) GIO Results - Last 24 hrs: Microbiology 07/12/21 11:10 Aerobic Blood Culture - Preliminary Blood - Venous - Lab Draw NO GROWTH AFTER 1 DAY Anaerobic Blood Culture - Preliminary NO GROWTH AFTER 1 DAY 07/12/21 11:00 Aerobic Blood Culture - Preliminary Blood - Venous NO GROWTH AFTER 1 DAY Anaerobic Blood Culture - Preliminary NO GROWTH AFTER 1 DAY Med Orders - Current: Current Medications Dexamethasone (Dexamethasone 4 Mg Tab) 6 mg PO Q24H [facility] Dextrose/Water (50% Dextrose In Water 50 Ml Syringe) 50 ml IVPUSH ASDIRECTED PRN PRN Reason: Hypoglycemia Donepezil HCl (Donepezil 5 Mg Tab) 5 mg PO BEDTIME RAY Last Admin: 07/12/21 20:48 Dose: 5 mg Documented by: Enoxaparin Sodium (Enoxaparin 40 Mg/0.4 Ml Syringe) 40 mg SUBCUT Q24H RAY Last Admin: 07/12/21 17:04 Dose: 40 mg Documented by: Glucagon (Glucagon,Human Recombinant 1 Mg Vial) 1 mg IM ASDIRECTED PRN PRN Reason: Hypoglycemia Remdesivir 100 mg/ Sodium (Chloride) 100 mls @ 100 mls/hr IV Q24H RAY Stop: 07/16/21 12:59 Insulin Aspart (Insulin Aspart 100 Units/Ml 3 Ml Pen) 0 unit SUBCUT TIDAC [facility]; Protocol Last Admin: 07/13/21 07:53 Dose: 3 units Documented by: Sertraline HCl (Sertraline 100 Mg Tab) 100 mg PO DAILY [facility] Last Admin: 07/13/21 08:00 Dose: 100 mg Documented by: Simvastatin (Simvastatin 20 Mg Tab) 20 mg PO BEDTIME RAY Discontinued Medications Acetaminophen (Acetaminophen 500 Mg Tab) 1,000 mg PO ONETIME ONE Stop: 07/12/21 11:46 Last Admin: 07/12/21 12:05 Dose: 1,000 mg Documented by: Aspirin (Aspirin 81 Mg Tab.Chew) 324 mg PO ONETIME ONE Stop: 07/12/21 11:07 Last Admin: 07/12/21 11:20 Dose: 324 mg Documented by: Dexamethasone (Dexamethasone 10 Mg/Ml Sdv) 10 mg IVPUSH ONETIME ONE Stop: 07/12/21 12:10 Last Admin: 07/12/21 12:15 Dose: 10 mg Documented by: Sodium Chloride (Normal Saline) 1,000 mls @ 999 mls/hr IV BOLUS ONE Stop: 07/12/21 12:06 Last Admin: 07/12/21 11:19 Dose: 999 mls/hr Documented by: Remdesivir 200 mg/ Sodium (Chloride) 250 mls @ 250 mls/hr IV ONETIME ONE Stop: 07/12/21 12:21 Last Admin: 07/12/21 13:39 Dose: 250 mls/hr Documented by: Iopamidol (Iopamidol 755 Mg/Ml 500 Ml Multipack Bottle) 100 ml IVPUSH ONETIME STA Stop: 07/12/21 13:16 Last Admin: 07/12/21 13:15 Dose: 100 ml Documented by: Simvastatin (Simvastatin 20 Mg Tab) 20 mg PO DAILY [facility] Last Admin: 07/13/21 08:00 Dose: 20 mg Documented by:
--- NOTE | 2021-07-17 12:34 | ECHO ---
EXAM DATE: 07/12/21 PATIENT'S AGE: 70 The ECHO report has been scanned into [email or web address] and can be seen in this patient's EMR (Electronic Medical Record) under the REPORTS section. The report has also been scanned into PACS. [id number]
== END 2021-07-13 14:55 | disposition home or self-care (01) | DRG 177 ==
LOC: MW.ED 10:55 → MW.MS 14:24
PROVIDERS: ADMIT Internal Medicine; ATTEND Internal Medicine
PROC: XW033E5 Introduction of Remdesivir Anti-infective into Peripheral Vein, Percutaneous Approach, New Technology Group 5 (ICD-10-PCS; principal; 2021-07-12)
PROC: 3E0333Z Introduction of Anti-inflammatory into Peripheral Vein, Percutaneous Approach (ICD-10-PCS; 2021-07-12)
DX: U07.1 COVID-19 (principal); J12.82 Pneumonia due to coronavirus disease 2019; E86.0 Dehydration; E78.00 Pure hypercholesterolemia, unspecified; I10 Essential (primary) hypertension; E11.9 Type 2 diabetes mellitus without complications; Z79.82 Long term (current) use of aspirin; Z79.899 Other long term (current) drug therapy
CPT/HCPCS: 0240U; 36415; 71045; 71045-26; 71275; 71275-26; 80053; 81003; 82248; 82947; 83605; 83690; 84484; 85025; 85379; 87040; 93005; 93306; 96365; 96375; 99285-25; A9270-GY; J1100; J1650; J1815-GY; J7030; J7050; Q9967

== ENCOUNTER → 2022-07-18 | Day surgery (SDC) | payer MEDICARE, OTHER ==
[~2022-07-18] MED LIST: Lactated Ringers 1,000 ML IV SCH; Lidocaine 2% 5 ML SDV ONE; Propofol 200 MG/20 ML SDV ONE
== END | disposition home or self-care (01) ==
LOC: MW.SDS 10:41
PROVIDERS: ATTEND Surgery
DX: Z12.11 Encounter for screening for malignant neoplasm of colon (principal); K63.89 Other specified diseases of intestine; I10 Essential (primary) hypertension; K58.9 Irritable bowel syndrome, unspecified; F41.9 Anxiety disorder, unspecified; E11.9 Type 2 diabetes mellitus without complications; E78.00 Pure hypercholesterolemia, unspecified; G47.30 Sleep apnea, unspecified; I24.0 Acute coronary thrombosis not resulting in myocardial infarction; Z79.899 Other long term (current) drug therapy; Z79.84 Long term (current) use of oral hypoglycemic drugs; Z79.82 Long term (current) use of aspirin; Z98.890 Other specified postprocedural states; Z87.891 Personal history of nicotine dependence; Z95.4 Presence of other heart-valve replacement
CPT/HCPCS: G0105; J2704; J7120; 00812; 99100

== ENCOUNTER 2024-10-13 11:24 | Emergency (ER) | payer MEDICARE, OTHER ==
[2024-10-13 12:26] LABS: BASOPHILS ABSOLUTE AUTO 0.02 K/uL (0.00-0.20); BASOPHILS PERCENT AUTO 0.5 % (0.0-1.0); EOSINOPHILS ABSOLUTE AUTO 0.03 K/uL (0.00-0.45); EOSINOPHILS PERCENT AUTO 0.7 % (0.0-6.0); HEMATOCRIT 39.9 % (42.0-52.0); HEMOGLOBIN 13.1 g/dL (14.0-18.0); IMMATURE GRAN ABSOLUTE AUTO 0.01 K/uL (0.00-0.05); IMMATURE GRAN PERCENT AUTO 0.2 % (0.0-0.4); LYMPHOCYTES ABSOLUTE AUTO 0.98 K/uL (1.00-4.80); LYMPHOCYTES PERCENT AUTO 23.6 % (24.0-44.0); MEAN CORPUSCULAR HEMOGLOBIN 28.5 pg (28.0-32.0); MEAN CORPUSCULAR HGB CONC 32.8 g/dL (32.0-36.0); MEAN CORPUSCULAR VOLUME 86.7 fL (83.0-99.0); MEAN PLATELET VOLUME 12.6 fL (9.4-12.4); MONOCYTES ABSOLUTE AUTO 0.56 K/uL (0.00-0.80); MONOCYTES PERCENT AUTO 13.5 % (0.0-8.0); NEUTROPHILS ABSOLUTE AUTO 2.56 K/uL (1.80-7.70); NEUTROPHILS PERCENT AUTO 61.5 % (41.0-71.0); PLATELET COUNT,PLT 101 K/uL (150-400); WHITE BLOOD CELL COUNT,WBC 4.16 K/uL (3.9-11.3)
[2024-10-13 12:54] LABS: CALCIUM 8.7 mg/dL (8.5-10.1); CARBON DIOXIDE,CO2 23.3 mmol/L (21.0-32.0); CREATININE 1.3 mg/dL (0.8-1.3); EST CRCL DRUG DOSING (CG) 50.69 mL/min
== END 2024-10-13 15:18 | disposition home or self-care (01) ==
LOC: MW.ED 11:24
DX: R00.2 Palpitations (principal); I10 Essential (primary) hypertension; E78.00 Pure hypercholesterolemia, unspecified; E11.9 Type 2 diabetes mellitus without complications; Z79.82 Long term (current) use of aspirin; Z79.899 Other long term (current) drug therapy
CPT/HCPCS: 36415; 80048; 84484; 85025; 87428-QW; 93005; 99285